=== PATIENT | female | born 1995 ===

== ENCOUNTER 2017-12-23 22:01 | Emergency (ER) | payer SELFPAY ==
[2017-12-23 22:06] VITALS: BP 105/62; PULSE 60; BMI 20.3
[2017-12-23] MEDS ORDERED: SODIUM PHOSPHATE/NA BIPHOS 133 ML ENEMA PR ONE (22:14)
--- NOTE | 2017-12-23 22:27 | PDOC ---
History of Present Illness - General History Source: Patient Exam Limitations: No Limitations - History of Present Illness Initial Comments: 12/23/17 22:39 The patient is a 22 year old female with a significant PMH of celiac who presents to the emergency department with constipation for over a week. The patient states that she experienced an episode of diarrhea prior to this ongoing episode of constipating about a week and a half ago. She also endorses some episodes of chills and feeling tired like she is coming down with something. She denies any sick contact or recent travel. She states that she tried using laxatives to help her constipation with no apparent relief. The patient reports some associated belly pain with her constipation. She denies any other symptoms. She denies any fever, chills. Nausea. Vomiting, or urinary symptoms. She denies any chest pain, shortness of breath, headache or dizziness. The patient denies any other complaints. PCP: Dr. Light ([place]) <Dixon Pereira - Last Filed: 12/23/17 22:39> - General History Source: Patient Exam Limitations: No Limitations <Surjit Julio - Last Filed: 12/23/17 23:57> - General Chief Complaint: Constipation Stated Complaint: CONSTIPATION X ONE WEEK Time Seen by Provider: 12/23/17 22:14 Past History <Dixon Pereira - Last Filed: 12/23/17 22:39> - Past Medical History COPD: No Other medical history: CELIAC - Suicide/Smoking/Psychosocial Hx Smoking History: Never smoked Have you smoked in the past 12 months: No Information on smoking cessation initiated: No Hx Alcohol Use: No Drug/Substance Use Hx: No Substance Use Type: None <Surjit Julio - Last Filed: 12/23/17 23:57> - Past Medical History Allergies/Adverse Reactions: Allergies Allergy/AdvReac Type Severity Reaction Status Date / Time No Known Allergies Allergy Verified 12/23/17 22:02 Home Medications: Ambulatory Orders Magnesium Citrate [Citroma -] 195 ml PO ONCE PRN #1 bottle 12/23/17 Sodium Phosphate,Hardeman-Dibasic [Fleet Enema] 133 ml RC ONCE PRN #1 enema Review of Systems - Review of Systems Able to Perform ROS?: Yes Comments:: 12/23/17 22:39 GENERAL/CONSTITUTIONAL: No fever or chills. No weakness. HEAD, EYES, EARS, NOSE AND THROAT: No change in vision. No ear pain or discharge. No sore throat. CARDIOVASCULAR: No chest pain or shortness of breath. RESPIRATORY: No cough, wheezing, or hemoptysis. GASTROINTESTINAL: (+)constipation.No nausea, vomiting, diarrhea. GENITOURINARY: (+)stomach pain. No dysuria, frequency, or change in urination. MUSCULOSKELETAL: No joint or muscle swelling or pain. No neck or back pain. SKIN: No rash NEUROLOGIC: No headache, vertigo, loss of consciousness, or change in strength/ sensation. ENDOCRINE: No increased thirst. No abnormal weight change. HEMATOLOGIC/LYMPHATIC: No anemia, easy bleeding, or history of blood clots. ALLERGIC/IMMUNOLOGIC: No hives or skin allergy. <Dixon Pereira - Last Filed: 12/23/17 22:39> *Physical Exam - Vital Signs Last Vital Signs Temp Pulse Resp BP Pulse Ox 60 16 105/62 100 12/23/17 22:03 12/23/17 22:03 12/23/17 22:03 12/23/17 22:03 - Physical Exam Comments: 12/23/17 22:39 GENERAL: Awake, alert, and fully oriented, in no acute distress HEAD: No signs of trauma EYES: PERRLA, EOMI, sclera anicteric, conjunctiva clear ENT: Auricles normal inspection, hearing grossly normal, nares patent, oropharynx clear without exudates. Moist mucosa NECK: Normal ROM, supple, no lymphadenopathy, JVD, or masses LUNGS: Breath sounds equal, clear to auscultation bilaterally. No wheezes, and no crackles HEART: Regular rate and rhythm, normal S1 and S2, no murmurs, rubs or gallops ABDOMEN: Soft, nontender, normoactive bowel sounds. No guarding, no rebound. No masses EXTREMITIES: Normal range of motion, no edema. No clubbing or cyanosis. No cords, erythema, or tenderness NEUROLOGICAL: Cranial nerves II through XII grossly intact. Normal speech, normal gait SKIN: Warm, Dry, normal turgor, no rashes or lesions noted. <Dixon Pereira - Last Filed: 12/23/17 22:39> - Vital Signs Last Vital Signs Temp Pulse Resp BP Pulse Ox 60 16 105/62 100 12/23/17 22:03 12/23/17 22:03 12/23/17 22:03 12/23/17 22:03 <Surjit Julio - Last Filed: 12/23/17 23:57> ED Treatment Course - Medications Given in the ED: ED Medications Discontinued Medications Generic Name Dose Route Start Last Admin Trade Name Freq PRN Reason Stop Dose Admin Sodium Phosphate 133 ml 12/23/17 22:14 12/23/17 22:19 Fleet Adult Rectal Enema - OR 12/23/17 22:15 133 ml ONCE ONE Administration <Dixon Pereira - Last Filed: 12/23/17 22:39> - LABORATORY CBC & Chemistry Diagram: 12/23/17 23:00 12/23/17 23:00 - Medications Given in the ED: ED Medications Discontinued Medications Generic Name Dose Route Start Last Admin Trade Name Freq PRN Reason Stop Dose Admin Sodium Phosphate 133 ml 12/23/17 22:14 12/23/17 22:19 Fleet Adult Rectal Enema - OR 12/23/17 22:15 133 ml ONCE ONE Administration <Surjit Julio - Last Filed: 12/23/17 23:57> Medical Decision Making - Medical Decision Making 12/23/17 22:20 A portion of this note was documented by scribe services under my direction. I have reviewed the details of the note, within reason, and agree with the documentation with the following case summary and management plan written by me. Patient treated in the ED. Nursing notes are reviewed and incorporated into the medical decision-making. Vital signs reviewed. Peripheral IV access obtained by the nurse, laboratory studies are drawn and sent, reviewed and interpreted by myself. Vital Signs Temp Pulse Resp BP Pulse Ox 60 16 105/62 100 12/23/17 22:03 12/23/17 22:03 12/23/17 22:03 12/23/17 22:03 22 year old female with past medical history of celiac's disease presents with constipation x 1 week. Pt reports no change in diet, and she has been attempting to avoid all gluten foods. Stated she not been able to move her bowels. Denies fevers, chills, cough, vomiting, diarrhea. Denies abdominal pain. Denies vaginal bleeding or discharge. Also incidentally c/o of cold-like symptoms but denies cough, fever, nausea, body aches. I suspect patient is likely having constipation 2/2 celiac's disease. Will trial fleet enema. I also suspect pt has viral syndrome. Reassess. 12/23/17 22:53 The patient reports some bowel movement but still difficulty moving her bowels. I had a lengthy discussion with the patient. She consents for stool disimpaction. Disimpaction performed by me with Dixon as a set decorator. 12/23/17 23:27 CBC, BMP 12/23/17 23:00 12/23/17 23:00 CMP Sodium 137 mmol/L (136-145) 12/23/17 23:00 Potassium 3.6 mmol/L (3.5-5.1) 12/23/17 23:00 Chloride 104 mmol/L (98-107) 12/23/17 23:00 Carbon Dioxide 28 mmol/L (22-28) 12/23/17 23:00 Anion Gap 5 MMOL/L (8-16) L 12/23/17 23:00 BUN 12 mg/dl (7-18) 12/23/17 23:00 Creatinine 0.7 mg/dl (0.6-1.3) 12/23/17 23:00 Creat Clearance w eGFR > 60 (>60) 12/23/17 23:00 Random Glucose 73 mg/dl (74-106) L 12/23/17 23:00 Calcium 9.7 mg/dl (8.4-10.2) 12/23/17 23:00 Total Bilirubin 0.7 mg/dl (0.2-1.0) 12/23/17 23:00 AST 26 U/L (10-42) 12/23/17 23:00 ALT 25 U/L (10-40) 12/23/17 23:00 Alkaline Phosphatase 48 U/L (32-92) 12/23/17 23:00 Total Protein 7.6 g/dl (6.4-8.3) 12/23/17 23:00 Albumin 4.8 g/dl (3.5-5.0) 12/23/17 23:00 12/23/17 23:45 Rectal exam demonstrates no stool in vault. Small external hemorrhoids but no other findings. Pt informs me that she may have eaten at a store/restaurant that may have contained cross contaminants with gluten. The patient does feel better with bowel movements. I advised the patient that she should track of what she eats. The patient would like to go home. I'll write a prescription of magnesium citrate and fleet enema. Pt will follow up with a GI physician. I discussed the physical exam findings, ancillary test results and final diagnoses with the patient. I answered all of the patient's questions. The patient was satisfied with the care received and felt comfortable with the discharge plan and treatment plan. The patient will call their primary care physician within 24 hours to arrange follow-up and will return to the Emergency Department with any new, persistant or worsening symptoms. <Surjit Julio - Last Filed: 12/23/17 23:57> *DC/Admit/Observation/Transfer - Attestations Scribe Attestion: 12/23/17 22:39 Documentation prepared by Dixon Pereira, acting as certified medical asst for Surjit Julio MD. <Dixon Pereira - Last Filed: 12/23/17 22:39> - Discharge Dispostion Decision to Admit order: No <Surjit Julio - Last Filed: 12/23/17 23:57> Diagnosis at time of Disposition: Constipation Qualifiers: Constipation type: unspecified constipation type Qualified Code(s): K59.00 - Constipation, unspecified - Discharge Dispostion Disposition: HOME Condition at time of disposition: Stable - Prescriptions Prescriptions: Magnesium Citrate [Citroma -] 195 ml PO ONCE PRN #1 bottle PRN Reason: Constipation Sodium Phosphate,Hardeman-Dibasic [Fleet Enema] 133 ml RC ONCE PRN #1 enema PRN Reason: Constipation - Patient Instructions Printed Discharge Instructions: DI for Constipation Additional Instructions: Please follow up with your GI doctor. Take the medications as prescribed. Please drink plenty of fluids and rest. You may take the fleet enema and/or magnesium citrate as prescribed as needed for constipation. - Post Discharge Activity Forms/Work/School Notes: Back to School
[2017-12-23] MEDS ORDERED: SODIUM CHLORIDE 1,000 ML IV STA (22:52)
[2017-12-23] MEDS ORDERED: MAGNESIUM CITRATE 300 ML BOTTLE PO ONE (23:12)
[2017-12-23 23:18] LABS: BASO % 0.8 % (0-2.0); EOS % 4.2 % (0-4.5); HEMATOCRIT 38.3 % (32.4-45.2); HEMOGLOBIN 13.1 GM/dl (10.7-15.3); LYMPH % 37.7 % (8-40); MCH 31.8 pg (25.7-33.7); MCHC 34.1 g/dl (32.0-36.0); MEAN CELL VOLUME 93.3 fl (80-96); MEAN PLT VOLUME 8.3 fl (7.5-11.1); MONO % 11.4 % (3.8-10.2); NEUT % 45.9 % (42.8-82.8); PLATELET COUNT 252 K/MM3 (134-434); RBC 4.11 M/mm3 (3.60-5.2); RDW 11.8 % (11.6-15.6); WHITE BLOOD COUNT 5.8 K/mm3 (4.0-10.8)
[2017-12-23 23:22] LABS: ALBUMIN 4.8 g/dl (3.5-5.0); ALK PHOS 48 U/L (32-92); ANION GAP 5 MMOL/L (8-16); BILIRUBIN,TOTAL 0.7 mg/dl (0.2-1.0); BLOOD UREA NITROGEN 12 mg/dl (7-18); CALCIUM 9.7 mg/dl (8.4-10.2); CHLORIDE 104 mmol/L (98-107); CO2 28 mmol/L (22-28); CREATININE 0.7 mg/dl (0.6-1.3); GLUCOSE,RANDOM 73 mg/dl (74-106); POTASSIUM 3.6 mmol/L (3.5-5.1); SGOT/AST 26 U/L (10-42); SGPT/ALT 25 U/L (10-40); SODIUM 137 mmol/L (136-145); TOT PROT 7.6 g/dl (6.4-8.3)
== END 2017-12-23 23:58 | disposition home or self-care (01) ==
LOC: FER 22:01
PROC: 3E0337Z Introduction of Electrolytic and Water Balance Substance into Peripheral Vein, Percutaneous Approach (ICD-10-PCS; principal; 2017-12-23)
DX: K59.00 Constipation, unspecified (principal)
CPT/HCPCS: 36415; 80053; 85025; 99281-25; J7030